=== PATIENT | female | born 1980 | race African-American/Black ===

== ENCOUNTER 2018-02-08 11:41 | Emergency (ER) | payer SELFPAY | END 2018-02-08 12:41 | disposition home or self-care (01) | LOC: ER 12:41 | DX: J06.9 Acute upper respiratory infection, unspecified (principal); H66.92 Otitis media, unspecified, left ear; R51 Headache; F17.200 Nicotine dependence, unspecified, uncomplicated | CPT/HCPCS: 99283 ==